=== PATIENT | female | born 1975 | race Caucasian/White ===

== ENCOUNTER 2017-11-17 08:51 | Emergency (ER) | payer OTHER ==
[~2017-11-17] VITALS: Ht 157.5 cm; Wt 170.1 kg
[~2017-11-17 08:51] MED LIST: ACCUNEB SO1.25 MG/1 INH; AMOXICILLIN500 M1 PO; AZITHROMYCIN PO; FLEXERIL PO; LIDODERM 5%1 PATCH TOP; MAGIC MOUTHWASH SWISH&SPIT; MEDROL DOSPAK21 TA1 PO; MOBIC7.5 MG PO; NOHOMEMEDICATIONS; NORCO 5-325 TA1 EACH PO; PREDNISONE 20 M20 M1 PO; TYLENOL325 MG PO; ULTRAM 50MG TAB50 MG PO; VENTOLIN HFA 1818 GM INH; VICODIN 5-5001 EACH PO; ZOFRAN ODT4 MG PO; ZPAK PO
[2017-11-17 09:28] LABS: ABSOLUTE BASOPHILS 0.1 thou/uL (0.0-0.2); ABSOLUTE EOSINOPHILS 0.4 thou/uL (0.0-0.7); ABSOLUTE LYMPHOCYTES 1.8 thou/uL (0.8-5.3); ABSOLUTE MONOCYTES 0.5 thou/uL (0.0-1.2); ABSOLUTE NEUTROPHILS 5.7 thou/uL (1.6-8.1); BASOPHILS 0.9 %; EOSINOPHILS 5.2 %; HEMATOCRIT 42.6 % (37.0-47.0); HEMOGLOBIN 14.3 gm/dL (12.0-15.0); LYMPHOCYTES 21.3 %; MCH 29.5 pg (26.0-34.0); MCHC 33.6 g/dL (28.0-37.0); MCV 87.7 fL (80.0-100.0); MONOCYTES 5.7 %; MPV 9.1 fl. (7.2-11.1); NUCLEATED RBCS 0 /100WBC; PLATELET COUNT* 181 thou/uL (150-400); POLYS 66.9 %; RBC 4.86 mil/uL (4.20-5.00); RDW-CV 14.2 % (10.5-14.5); WBC 8.5 thou/uL (4.0-11.0)
[2017-11-17 09:35] LABS: ANION GAP 4 mmol/L (7-16); BUN 10 mg/dL (7-18); CALCIUM 9.1 mg/dL (8.5-10.1); CHLORIDE 102 mmol/L (98-107); CO2 31 mmol/L (21-32); GLUCOSE 108 mg/dL (70-99); POTASSIUM 4.5 mmol/L (3.5-5.1); SODIUM 137 mmol/L (136-145)
[2017-11-17 09:37] LABS: APTT 29.6 Seconds (25.0-31.3); PROTIME 10.1 Seconds (9.20-11.50)
[2017-11-17 09:42] LABS: ALBUMIN 3.2 g/dL (3.4-5.0); ALKALINE PHOSPHATASE 134 U/L (46-116); LIPASE 91 U/L (73-393); SGOT 78 U/L (15-37); SGPT 89 U/L (30-65); TOTAL BILIRUBIN 0.9 mg/dL (<0.1-1.0); TOTAL PROTEIN 7.5 g/dL (6.4-8.2); TROPONIN-I LEVEL <0.06 ng/mL (<0.06)
[2017-11-17 10:24] VITALS: BP 152/96
--- NOTE | 2017-11-17 14:56 | EKG ---
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 : 1975 Requested By: Bertin Merlos Order Number: [id number] MD: Danielito Shen Measurements Intervals [place] Rate: 85 P: 19 GA: 176 QRS: 72 QRSD: 98 T: 59 QT: 366 QTc: 436 Interpretive Statements Sinus rhythm Baseline wander in lead(s) V1 Compared to ECG 07/27/2011 16:01:07 No significant changes Electronically Signed On 11-17-2017 14:56:25 CDT by Danielito Shen [email or web address] <ELECTRONICALLY SIGNED> By: Danielito Shen MD, [facility] 11/17/17 1456 09 09 Danielito Shen MD, [facility] /EPI
== END 2017-11-17 10:24 | disposition home or self-care (01) ==
LOC: M.ERS 08:51
PROVIDERS: Family Medicine
DX: R42 Dizziness and giddiness (principal); E66.01 Morbid (severe) obesity due to excess calories; Z98.890 Other specified postprocedural states; Z90.710 Acquired absence of both cervix and uterus; Z68.44 Body mass index [BMI] 60.0-69.9, adult

== ENCOUNTER 2018-03-17 16:52 | Emergency (ER) | payer OTHER ==
[~2018-03-17] VITALS: Ht 157.5 cm; Wt 158.8 kg
[2018-03-17] MEDS ORDERED: NABUMETONE 750750 M1 PO (17:56)
[2018-03-17] MEDS ORDERED: CEFDINIR300 MG PO (17:56)
[2018-03-17] MEDS ORDERED: HYDROCODONE-AP1 EAC6 PO (17:56)
[2018-03-17 18:13] VITALS: BP 149/77
== END 2018-03-17 18:46 | disposition home or self-care (01) ==
LOC: M.ERS 16:52
DX: H66.91 Otitis media, unspecified, right ear (principal); E66.01 Morbid (severe) obesity due to excess calories; Z68.44 Body mass index [BMI] 60.0-69.9, adult; Z90.711 Acquired absence of uterus with remaining cervical stump; Z98.890 Other specified postprocedural states

== ENCOUNTER 2018-08-11 08:55 | Emergency (ER) | payer BC ==
[~2018-08-11] VITALS: Ht 157.5 cm; Wt 181.4 kg
[~2018-08-11 08:55] MED LIST changes: +CEFDINIR300 MG PO; +HYDROCODONE-AP1 EAC6 PO; +NABUMETONE 750750 M1 PO
[2018-08-11] MEDS ORDERED: ZPAK PO (10:12)
[2018-08-11] MEDS ORDERED: PREDNISONE 20 M20 M1 PO (10:12)
[2018-08-11] MEDS ORDERED: VENTOLIN HFA 1818 GM INH (10:12)
[2018-08-11 10:38] VITALS: BP 138/78
== END 2018-08-11 10:40 | disposition home or self-care (01) ==
LOC: M.ERS 08:55
DX: J40 Bronchitis, not specified as acute or chronic (principal); E66.01 Morbid (severe) obesity due to excess calories; Z68.45 Body mass index [BMI] 70 or greater, adult; Z90.710 Acquired absence of both cervix and uterus; Z98.890 Other specified postprocedural states

== ENCOUNTER 2018-11-19 16:33 | Emergency (ER) | payer BC ==
[~2018-11-19] VITALS: Ht 157.5 cm; Wt 192.3 kg
[2018-11-19 16:58] LABS: URINE BILIRUBIN NEGATIVE (Negative); URINE BLOOD NEGATIVE (Negative); URINE CLARITY CLEAR; URINE COLOR YELLOW; URINE GLUCOSE-RANDOM NEGATIVE (Negative); URINE KETONES NEGATIVE (Negative); URINE LEUKOCYTES-REFLEX NEGATIVE (Negative); URINE NITRITE-REFLEX NEGATIVE (Negative); URINE PROTEIN NEGATIVE (Negative); URINE SPECIFIC GRAVITY 1.015 (1.005-1.030); URINE UROBILINOGEN 0.2 E.U./dl (0.2-1.0)
[2018-11-19 17:00] LABS: RDW-CV 14.1 % (10.5-14.5)
[2018-11-19 17:05] LABS: ABSOLUTE EOSINOPHILS 0.5 thou/uL (0.0-0.7); ABSOLUTE LYMPHOCYTES 2.6 thou/uL (0.8-5.3); ABSOLUTE MONOCYTES 0.6 thou/uL (0.0-1.2); ABSOLUTE NEUTROPHILS 6.8 thou/uL (1.6-8.1); BASOPHILS 0.3 %; EOSINOPHILS 4.5 %; HEMATOCRIT 41.8 % (37.0-47.0); MCH 29.1 pg (26.0-34.0); MCHC 33.6 g/dL (28.0-37.0); MCV 86.6 fL (80.0-100.0); MPV 9.3 fl. (7.2-11.1); NUCLEATED RBCS 0 /100WBC; PLATELET COUNT* 190 thou/uL (150-400); POLYS 64.2 %; RBC 4.82 mil/uL (4.20-5.00); WBC 10.6 thou/uL (4.0-11.0)
[2018-11-19 17:09] LABS: ANION GAP 7 mmol/L (7-16); BUN 12 mg/dL (7-18); CALCIUM 9.1 mg/dL (8.5-10.1); CHLORIDE 103 mmol/L (98-107); CO2 31 mmol/L (21-32); GLUCOSE 108 mg/dL (70-99); POTASSIUM 4.1 mmol/L (3.5-5.1); SODIUM 141 mmol/L (136-145)
[2018-11-19 17:19] LABS: ALBUMIN 3.2 g/dL (3.4-5.0); ALKALINE PHOSPHATASE 148 U/L (46-116); SGOT 55 U/L (15-37); SGPT 65 U/L (30-65); TOTAL BILIRUBIN 0.5 mg/dL (<0.1-1.0); TOTAL PROTEIN 7.6 g/dL (6.4-8.2); TROPONIN-I LEVEL <0.06 ng/mL (<0.06)
[2018-11-19] MEDS ORDERED: HYDROXYZINE HCL25 M1 PO (18:48)
[2018-11-19] MEDS ORDERED: NORCO 5-325 TA1 EACH PO (18:48)
[2018-11-19] MEDS ORDERED: BENTYL 20 MG TA20 M1 PO (18:48)
[2018-11-19 19:03] VITALS: BP 157/98
--- NOTE | 2018-11-22 12:31 | EKG ---
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
== END 2018-11-19 19:03 | disposition home or self-care (01) ==
LOC: M.ERS 16:33
PROVIDERS: Nurse Practitioner Family
DX: R91.8 Other nonspecific abnormal finding of lung field (principal); R10.11 Right upper quadrant pain; E66.01 Morbid (severe) obesity due to excess calories; Z68.45 Body mass index [BMI] 70 or greater, adult; Z90.49 Acquired absence of other specified parts of digestive tract; Z90.710 Acquired absence of both cervix and uterus; Z98.890 Other specified postprocedural states

== ENCOUNTER 2019-01-19 18:17 | Emergency (ER) | payer BC ==
[~2019-01-19] VITALS: Ht 157.5 cm; Wt 186.0 kg
[~2019-01-19 18:17] MED LIST changes: +BENTYL 20 MG TA20 M1 PO; +HYDROXYZINE HCL25 M1 PO
[2019-01-19 20:52] VITALS: BP 168/82
== END 2019-01-19 20:54 | disposition home or self-care (01) ==
LOC: M.ERS 18:17
DX: S19.89XA Other specified injuries of other specified part of neck, initial encounter (principal); E66.01 Morbid (severe) obesity due to excess calories; Z68.45 Body mass index [BMI] 70 or greater, adult; Z90.711 Acquired absence of uterus with remaining cervical stump; X58.XXXA Exposure to other specified factors, initial encounter; Y93.89 Activity, other specified; Y92.89 Other specified places as the place of occurrence of the external cause; Y99.8 Other external cause status

== ENCOUNTER 2019-05-08 09:10 | Emergency (ER) | payer BC ==
[~2019-05-08] VITALS: Ht 157.5 cm; Wt 176.9 kg
[2019-05-08] MEDS ORDERED: LIPITOR10 MG PO (09:18)
[2019-05-08] MEDS ORDERED: AMOXICILLIN500 M1 PO (09:40)
[2019-05-08] MEDS ORDERED: IBUPROFEN 800800 MG PO (09:40)
[2019-05-08] MEDS ORDERED: CORTISPORIN OTI10 M2 OTIC (09:40)
[2019-05-08 09:47] VITALS: BP 134/79
== END 2019-05-08 09:50 | disposition home or self-care (01) ==
LOC: M.ERS 09:10
DX: H60.92 Unspecified otitis externa, left ear (principal); H66.92 Otitis media, unspecified, left ear; E66.01 Morbid (severe) obesity due to excess calories; Z98.890 Other specified postprocedural states; Z90.711 Acquired absence of uterus with remaining cervical stump; Z68.45 Body mass index [BMI] 70 or greater, adult